=== PATIENT | male | born 1985 | race Caucasian/White ===

== ENCOUNTER 2021-01-08 13:00 | Emergency (ER) | payer OTHER ==
[~2021-01-08] VITALS: Ht 175.3 cm; Wt 83.9 kg
[~2021-01-08 13:00] MED LIST: PROZAC
[2021-01-08] MEDS ORDERED: SODIUM CHLORIDE 0.9% 1,000 ML IV ONE (13:15)
[2021-01-08 14:27] LABS: Basophils # (auto) 0.1 10 ^3/uL (0-0.2); Hemoglobin 14.6 g/dL (13.5-17.5); Red Cell Distribution Width 13.4 % (11.8-14.3)
[2021-01-08 14:29] LABS: Basophils % (auto) 0.7 % (0.0-2.0); Eosinophils # (auto) 0 10 ^3/uL (0-0.8); Eosinophils % (auto) 0.3 % (0.0-7.0); Hematocrit 42.5 % (41.0-53.0); Lymphocytes # (auto) 0.5 10 ^3/uL (0.4-5.4); Lymphocytes % (auto) 3.5 % (10.0-50.0); Mean Corpuscular Hemoglobin 35.5 pg (28.0-32.0); Mean Corpuscular Hgb Conc. 34.4 g/dL (32.0-36.0); Mean Corpuscular Volume 103.2 fL (80.0-100.0); Monocytes # (auto) 0.8 10 ^3/uL (0-1.3); Monocytes % (auto) 5.2 % (0.0-12.0); Neutrophils # (auto) 13.7 10 ^3/uL (1.6-8.6); Neutrophils % (auto) 90.3 % (37.0-80.0); Platelet Count (auto) 139 10^3/uL (140-450); Red Blood Cells 4.12 10^6/uL (4.5-5.90); White Blood Cell 15.1 10^3/uL (4.4-10.8)
[2021-01-08] MEDS ORDERED: LORazepam 2MG/ML-1ML VIAL ONE (14:29)
[2021-01-08] MEDS ORDERED: LORazepam 2MG/ML-1ML VIAL IV ONE (14:30)
[2021-01-08 14:47] LABS: Albumin 3.8 g/dL (3.4-5.0); Anion Gap 15 (5-15); Blood Urea Nitrogen 6 mg/dL (7-18); Calcium 8.6 mg/dL (8.5-10.1); Carbon Dioxide 23 mmol/L (21-32); Chloride 95 mmol/L (98-107); Glucose 115 mg/dL (74-106); Potassium 3.4 mmol/L (3.5-5.1); Sodium 133 mmol/L (136-145)
[2021-01-08 14:53] LABS: Alanine Aminotransferase 51 U/L (16-61); Alkaline Phosphatase 322 U/L (45-117); Aspartate Aminotransferase 148 U/L (15-37); BUN/Creatinine Ratio 9.4; Bilirubin, Total 3.9 mg/dL (0.2-1.0); GFR African American 182 mL/min; GFR Non-African American 150 mL/min; Total Protein 8.3 g/dL (6.4-8.2)
[2021-01-08 18:00] VITALS: BP 133/92
== END 2021-01-08 18:43 | disposition home or self-care (01) ==
LOC: ER 13:00 → EDBD 13:00 → ER 18:37
DX: F10.230 Alcohol dependence with withdrawal, uncomplicated (principal); D72.829 Elevated white blood cell count, unspecified; F17.210 Nicotine dependence, cigarettes, uncomplicated
CPT/HCPCS: 36415; 70450; 80053; 80320; 84484; 85025; 96361; 96374; 99284; J2060; J7030

== ENCOUNTER 2022-01-06 14:07 | Emergency (ER) | payer OTHER ==
[~2022-01-06] VITALS: Ht 175.3 cm; Wt 72.6 kg
[2022-01-06] MEDS ORDERED: PANT40TA2 PO (14:27)
[2022-01-06] MEDS ORDERED: SODIUM CHLORIDE 0.9% 1,000 ML IVB ONE (14:30)
[2022-01-06] MEDS ORDERED: PANTOPRAZOLE 40 MG/10 ML VIAL INJ IV ONE (14:30)
[2022-01-06] MEDS ORDERED: SODIUM CHLORIDE 0.9% 1,000 ML IV ONE (14:30)
[2022-01-06] MEDS ORDERED: THIAMINE 100mg/ml INJ (200mg/2ml VIAL) IV ONE (14:30)
[2022-01-06 15:01] LABS: Eosinophils # (auto) 0 10 ^3/uL (0-0.8); Lymphocytes # (auto) 1.3 10 ^3/uL (0.4-5.4); Lymphocytes % (auto) 9.6 % (10.0-50.0); Nucleated Red Blood Cells % 0.1 %
[2022-01-06 15:04] LABS: Basophils # (auto) 0.1 10 ^3/uL (0-0.2); Basophils % (auto) 0.4 % (0.0-2.0); Eosinophils % (auto) 0.4 % (0.0-7.0); Hematocrit 34.7 % (41.0-53.0); Hemoglobin 12.6 g/dL (13.5-17.5); Mean Corpuscular Hemoglobin 37.9 pg (28.0-32.0); Mean Corpuscular Hgb Conc. 36.3 g/dL (32.0-36.0); Mean Corpuscular Volume 104.4 fL (80.0-100.0); Monocytes # (auto) 0.9 10 ^3/uL (0-1.3); Monocytes % (auto) 6.6 % (0.0-12.0); Neutrophils # (auto) 11.3 10 ^3/uL (1.6-8.6); Red Blood Cells 3.32 10^6/uL (4.5-5.90); Red Cell Distribution Width 13.8 % (11.8-14.3); White Blood Cell 13.7 10^3/uL (4.4-10.8)
[2022-01-06 15:13] LABS: Albumin 3.6 g/dL (3.4-5.0); BUN/Creatinine Ratio 9.6
[2022-01-06 15:24] LABS: Bilirubin, Total 6.6 mg/dL (0.2-1.0); Total Protein 8.6 g/dL (6.4-8.2)
[2022-01-06 15:30] VITALS: BP 122/86
[2022-01-06 15:41] LABS: Potassium 2.9 mmol/L (3.5-5.1)
== END 2022-01-06 15:08 | disposition home or self-care (01) ==
LOC: ER 14:07 → EDBD 14:07 → ER 15:08
DX: K29.70 Gastritis, unspecified, without bleeding (principal); F10.10 Alcohol abuse, uncomplicated; F12.10 Cannabis abuse, uncomplicated; F17.210 Nicotine dependence, cigarettes, uncomplicated; Z88.8 Allergy status to other drugs, medicaments and biological substances; Y90.9 Presence of alcohol in blood, level not specified
CPT/HCPCS: 36415; 74176; 80053; 80320; 85025; 96361; 96374; 96375; 99284; C9113; J3411; J7030